=== PATIENT | female | born 1990 | race Caucasian/White ===

== ENCOUNTER 2017-03-13 16:53 | Inpatient (IN) | payer OTHER ==
[~2017-03-13] VITALS: Ht 167.6 cm; Wt 63.5 kg
[2017-03-13 17:03] VITALS: BP 123/72
[2017-03-13 17:29] LABS: BILIRUBIN NEGATIVE (NEGATIVE); BLOOD NEGATIVE (NEGATIVE); CLARITY CLEAR (CLEAR); COLOR YELLOW (YELLOW); GLUCOSE NEGATIVE (NEGATIVE); KETONE NEGATIVE (NEGATIVE); LEUKO ESTERASE NEGATIVE (NEGATIVE); NITRITE POSITIVE (NEGATIVE); PH 7.5 (5.0-9.0); UROBILINOGEN 0.2 E.U./dl (0.2-1.0)
[2017-03-13 17:35] LABS: BASO % 0.3 % (0.0-1.0); EOS # 0.2 10*3/uL (0.0-0.4); EOS % 1.2 % (1.0-4.0); HEMATOCRIT 40.3 % (37.0-47.0); HEMOGLOBIN 13.5 g/dl (12.0-16.0); LYMPH # 3.6 10*3/uL (1.3-4.4); LYMPH % 27.8 % (27.0-41.0); MEAN CELL VOLUME 87.6 fl (81.0-99.0); MEAN CORPUSCULAR HGB 29.3 pg (27.0-31.0); MEAN CORPUSCULAR HGB CONC 33.5 g/dl (33.0-37.0); MONO # 0.6 10*3/uL (0.1-1.0); MONO % 4.6 % (3.0-9.0); NEUT # 8.5 10*3/uL (2.3-7.9); NEUT % 65.8 % (47.0-73.0); PLATELET COUNT AUTOMATED 275 10*3/uL (130-400); RED CELL DISTRI WIDTH 15.2 % (0-14.5); WHITE BLOOD COUNT 12.9 10*3/uL (4.8-10.8)
[2017-03-13 17:39] LABS: URINE AMPHETAMINES < 1000 (1000ng/ml); URINE BARBITURATES < 200 (200ng/ml); URINE BENZODIAZEPINES < 200 (200ng/ml); URINE CANNABINOIDS (THC) > 50 (50ng/ml); URINE COCAINE < 300 (300ng/ml); URINE METHADONE < 300 (300ng/ml); URINE OPIATES > 300 (300ng/ml)
[2017-03-13 17:40] LABS: URINE PHENCYCLIDINE < 25 (25ng/ml)
[2017-03-13 17:44] LABS: BACTERIA 4+
[2017-03-13 17:53] LABS: ALBUMIN 3.6 gm/dl (3.1-4.5); ALKALINE PHOSPHATASE 81 U/L (45-117); BUN 6 mg/dl (7-24); CHLORIDE 102 mmol/L (98-107); CREATININE 0.65 mg/dL (0.55-1.02); ETHYL ALCOHOL < 3.0 mg/dl (<3); POTASSIUM 3.9 mmol/L (3.5-5.1); SGOT/AST 57 IU/L (3-35); SGPT/ALT 99 U/L (12-78); SODIUM 136 mmol/L (136-145); TOTAL PROTEIN 7.7 gm/dL (6.4-8.2)
[2017-03-13 18:01] LABS: THYROID STIM HORMONE (HS) 0.176 uIU/ml (0.358-4.75)
--- NOTE | 2017-03-13 18:10 | NUR ---
26 year old FEMALE admitted to room # 512 for stabilization. 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 Compliant with admission procedure. Patient denies any anxiety, but is unable to sit still, taps toes to floor continuously, looks about room, unable to focus eyes on nurse during interview. See assessment forms for additional information about patient status.
[2017-03-13 18:12] VITALS: BP 120/62
--- NOTE | 2017-03-13 19:04 | NUR ---
Patient reports the following symptoms of withdrawal: body aches, leg pain, anxiety and cocaine cravings. Patient given scheduled/PRN medication to control withdrawal symptoms. Close observation will be maintained.
[2017-03-13 20:00] VITALS: BP 119/68
[2017-03-14] VITALS: BP 127/82
[2017-03-14 08:00] VITALS: BP 100/60
--- NOTE | 2017-03-14 08:00 | NUR ---
ASSESSMENT COMPLETE. PT STATES WITHDRAWL SYMPTOMS AT THIS TIME ARE UNDER CONTROL; FEELS "BETTER" THAN YESTERDAY. PT STATES NO NEEDS AT THIS TIME.
--- NOTE | 2017-03-14 09:06 | NUR ---
DR. SERRANO IN TO SEE PATIENT.
--- NOTE | 2017-03-14 09:34 | NUR ---
DR. SERRANO NOTIFIED OF LACTIC OF 2.2.
--- NOTE | 2017-03-14 09:48 | NUR ---
ATTEMPT IV START X2, UNSUCCESSFUL. A SECOND NURSE IS GOING TO ATTEMPT.
--- NOTE | 2017-03-14 10:44 | NUR ---
second nurse attempt iv, unsuccessful. called nurse in icu to attempt per requst of physician.
--- NOTE | 2017-03-14 11:39 | NUR ---
IV STARTED #22 LEFT FORARM. PT TOLERATED WELL. IV FLUID BOLUS STARTED
--- NOTE | 2017-03-14 12:14 | NUR ---
PT STATES STOMACH CRAMPS, RESTLESS LEGS, OVERALL ANXIETY. PRN GIVEN. SEE MAR
--- NOTE | 2017-03-14 13:26 | NUR ---
PT COMPLAINS OF NAUSEA AND VOMITING. IV ZOFRAN GIVEN. SEE MAR. PT STATES OTHER PRN HELPING "A LITTLE". WILL CONTINUE TO MONITOR
[2017-03-14 16:00] VITALS: BP 101/55
[2017-03-14 20:00] VITALS: BP 108/52
--- NOTE | 2017-03-14 22:14 | NUR ---
PATIENT MEDICATED WITH PO TRAZODONE PER PRN FOR C/O SLEEPLESSNESS. WILL MONITOR EFFECTIVENESS. CALL LIGHT LEFT IN REACH.
--- NOTE | 2017-03-14 23:30 | NUR ---
PT ASSESSED AT THIS TIME. RESPIRATIONS EASY AND UNLABORED. NO S/S OF DISTRESS. IV FLUIDS RUNNING PER PHYSICIAN ORDER. IV SITE PATENT, DRESSING DRY AND IN TACT. NO COMPLAINTS VOICED AT THIS TIME. ALL NEEDS MET, CALL LIGHT IN REACH.
[2017-03-15] VITALS: BP 117/57
--- NOTE | 2017-03-15 04:25 | NUR ---
PT AM MEDICATION TAKEN WITH EASE. PT ALERT ORIENTED AND COOPERATIVE AT THIS TIME. IV FLUIDS RUNNING PER PHYSICIAN ORDER. IV SITE PATENT, DRESSING DRY AND IN TACT. CALL LIGHT IN REACH.
--- NOTE | 2017-03-15 04:52 | NUR ---
24 HR chart check completed.
[2017-03-15 07:39] LABS: BASO % 0.5 % (0.0-1.0); EOS # 0.3 10*3/uL (0.0-0.4); EOS % 3.3 % (1.0-4.0); HEMATOCRIT 35.4 % (37.0-47.0); HEMOGLOBIN 12.1 g/dl (12.0-16.0); LYMPH % 50.2 % (27.0-41.0); MEAN CORPUSCULAR HGB 29.7 pg (27.0-31.0); MEAN CORPUSCULAR HGB CONC 34.2 g/dl (33.0-37.0); MEAN PLATELET VOLUME 11.1 fl (9.6-12.3); MONO # 0.4 10*3/uL (0.1-1.0); MONO % 5.1 % (3.0-9.0); NEUT # 3.3 10*3/uL (2.3-7.9); NEUT % 40.6 % (47.0-73.0); PLATELET COUNT AUTOMATED 223 10*3/uL (130-400); RED BLOOD COUNT 4.07 10*6/uL (4.10-5.10); RED CELL DISTRI WIDTH 15.3 % (0-14.5)
[2017-03-15 07:46] LABS: BUN 8 mg/dl (7-24); CHLORIDE 108 mmol/L (98-107); CREATININE 0.56 mg/dL (0.55-1.02); POTASSIUM 4.3 mmol/L (3.5-5.1); SODIUM 140 mmol/L (136-145)
--- NOTE | 2017-03-15 11:15 | NUR ---
Patient reports the following symptoms of withdrawal: body aches, leg pain, nausea and HEROIN cravings. Patient given scheduled/PRN medication to control withdrawal symptoms. Close observation will be maintained.
[2017-03-15 12:00] VITALS: BP 110/60
--- NOTE | 2017-03-15 15:12 | NUR ---
PT RESTING IN BED. DENIES ANY NEEDS AT THIS TIME.
[2017-03-15 16:00] VITALS: BP 112/60
--- NOTE | 2017-03-15 20:56 | NUR ---
Patient displaying withdrawal symptoms, including: irritability, anxiousness, restlessness. Scheduled/PRN medications provided. Will continue to monitor medication effectiveness.
[2017-03-16] VITALS: BP 96/47
[2017-03-16 06:35] LABS: BASO % 0.4 % (0.0-1.0); EOS # 0.3 10*3/uL (0.0-0.4); EOS % 3.6 % (1.0-4.0); HEMOGLOBIN 12.3 g/dl (12.0-16.0); LYMPH % 50.9 % (27.0-41.0); MEAN CELL VOLUME 86.9 fl (81.0-99.0); MEAN CORPUSCULAR HGB 28.9 pg (27.0-31.0); MEAN CORPUSCULAR HGB CONC 33.2 g/dl (33.0-37.0); MEAN PLATELET VOLUME 10.1 fl (9.6-12.3); MONO # 0.4 10*3/uL (0.1-1.0); MONO % 5.1 % (3.0-9.0); NEUT # 3.1 10*3/uL (2.3-7.9); NEUT % 39.7 % (47.0-73.0); PLATELET COUNT AUTOMATED 258 10*3/uL (130-400); RED BLOOD COUNT 4.26 10*6/uL (4.10-5.10); RED CELL DISTRI WIDTH 15.3 % (0-14.5); WHITE BLOOD COUNT 7.8 10*3/uL (4.8-10.8)
[2017-03-16 06:42] LABS: BUN 7 mg/dl (7-24); CHLORIDE 107 mmol/L (98-107); CREATININE 0.51 mg/dL (0.55-1.02); SODIUM 140 mmol/L (136-145)
[2017-03-16 08:00] VITALS: BP 122/67
--- NOTE | 2017-03-16 08:50 | NUR ---
MEDICATED PT PER PRN ORDER WITH ROBAXIN FOR C/O MUSCLE ACHES,VISTARIL FOR ANXIETY,BENTYL FOR C/O STOMACH CRAMPS,REQUIP FOR C/O MUSCLE ACHES,AND BLANK FOR C/O SOLANO.
--- NOTE | 2017-03-16 08:53 | NUR ---
DR SERRANO IN TO SEE PT. NEW ORDERS RECEIVED.
--- NOTE | 2017-03-16 08:55 | NUR ---
DR SERRANO IN TO SEE PT. NEW ORDERS RECEIVED.
--- NOTE | 2017-03-16 09:36 | NUR ---
PT STATES RELIEF OF EARLIER SYMPTOMS WITH EARLIER PRN MEDS.
[2017-03-16] MEDS ORDERED: ZOFRAN 4 MG ED2 TAB PO (10:36)
[2017-03-16] MEDS ORDERED: ATARAX,VISTARIL50 MG PO (10:36)
[2017-03-16] MEDS ORDERED: DOXYCYCLINE100 M3 PO (10:37)
--- NOTE | 2017-03-16 11:01 | NUR ---
D/C PLANNING: PATIENT WANTS TO DO OUTPATIENT FOR HER AFTERFCARE PLAN. PATIENT IS GOING TO FOLLOW-UP WITH [employer]. CHILDREN'S AIDE LEFT MESSAGE WITH FACILITY TO SCHEDULE APPOINTMENT FOR PATIENT. INTAKE COORDIANTOR WILL FOLLOW-UP WITH PATIENT WITH APPOINTMENT TIME AND DATE. PATTI PENNINGTON B.A. CHILDREN'S AIDE
--- NOTE | 2017-03-16 11:15 | NUR ---
Discharge instructions reviewed with patient/family. Patient receptive and verbalizes understanding. Follow-up care arranged. Written instructions given to patient/family. NATY MUNOZ
== END 2017-03-16 11:15 | disposition home or self-care (01) | DRG 897 ==
LOC: ED 16:53 → EDHOLD 17:45 → 5E 17:45
PROVIDERS: Emergency Medicine; Internal Medicine; ADMIT Internal Medicine
DX: F11.23 Opioid dependence with withdrawal (principal); D72.829 Elevated white blood cell count, unspecified; N39.0 Urinary tract infection, site not specified; F12.10 Cannabis abuse, uncomplicated; R73.9 Hyperglycemia, unspecified; R94.6 Abnormal results of thyroid function studies; J40 Bronchitis, not specified as acute or chronic; R74.0 Nonspecific elevation of levels of transaminase and lactic acid dehydrogenase [LDH]; F17.210 Nicotine dependence, cigarettes, uncomplicated; B96.20 Unspecified Escherichia coli [E. coli] as the cause of diseases classified elsewhere; Z71.6 Tobacco abuse counseling